=== PATIENT | female | born 1940 | race Caucasian/White ===

== ENCOUNTER 2017-03-30 12:36 | Outpatient (CLI) | payer BC, MEDICARE ==
[2017-03-30 14:21] LABS: #Basophils 0.1 thou/uL (0.0-0.2); #Eosinphils 0.3 thou/uL (0.0-0.7); #Lymphocytes 2.4 thou/uL (1.20-3.40); #Monocytes 1.1 thou/uL (0.11-0.59); #Neutrophils 5.7 thou/uL (1.40-6.50); %Basophils 0.5 % (0.0-1.0); %Lymphocytes 24.9 % (21.0-51.0); %Monocytes 11.1 % (0.0-10.0); Hematocrit 43.2 % (36.0-47.0); Mean Platelet Volume 8.9 fL (7.4-10.4); Red Blood Cell (RBC) Count 4.28 mill/uL (4.20-5.40); White Blood Cell (WBC) Count 9.5 thou/uL (4.8-10.8)
[2017-03-30 14:39] LABS: Anion Gap 13 mmol/L (10-20); BUN (Urea Nitrogen) 25 mg/dL (9.8-20.1); Calc. Creatinine Clearance 0 mL/min (70-130); Calcium 10.9 mg/dL (7.8-10.44); Carbon Dioxide 25 mmol/L (23-31); Chloride 104 mmol/L (98-107); Estimated GFR-MDRD 48
[2017-03-30 14:41] LABS: Bilirubin Negative (Negative); Blood, Urine Negative (Negative); Glucose, Urine (Dipstick) 250 mg/dL (Negative); Ketone, Urine Negative (Negative); Nitrite Positive (Negative); Protein, Urine (Dipstick) Negative (Neg-Trace); Urobilinogen 0.2 mg/dL (0.2-1.0)
[2017-03-30 14:49] LABS: Bacteria/HPF 4+ HPF (None Seen); Hyaline Casts/LPF 0-3 HYALINE CAST LPF (0-3 Hyaline); Squamous Epithelial 0-3 HPF (0-3); WBC/HPF 21-50 HPF (0-3)
[2017-03-30 15:02] LABS: RBC/HPF 0-3 HPF (0-3)
--- NOTE | 2017-03-30 15:08 | EKG ---
Test Reason : Blood Pressure : / mmHG Vent. Rate : 086 BPM Atrial Rate : 086 BPM P-R Int : 160 ms QRS Dur : 084 ms QT Int : 360 ms P-R-T Axes : 059 033 053 degrees QTc Int : 430 ms Normal sinus rhythm Normal ECG No previous ECGs available Confirmed by JEMIMA SOTO ([id number]) on 03/30/2017 3:07:36 PM Referred By: DAYANNARO Confirmed By:JEMIMA SOTO
== END 2017-03-30 12:37 | disposition home or self-care (01) ==
LOC: LABBT 12:36
PROVIDERS: ATTEND Orthopaedic Surgery
DX: Z01.818 Encounter for other preprocedural examination (principal); M17.12 Unilateral primary osteoarthritis, left knee
CPT/HCPCS: 80048; 81001; 85025; 85610; 86850; 86900; 86901; 87081; 93005; 93010

== ENCOUNTER 2017-03-30 13:15 | Inpatient (IN) | payer BC, MEDICARE ==
[2017-03-30 12:51] VITALS: BMI 33.5
[2017-04-05] MEDS ORDERED: CEFAZOLIN/Water 2 GM/20 ML SYRINGE ONE (05:48)
[2017-04-05] MEDS ORDERED: Tranexamic Acid 1,000 MG/100 ML BAG ONE ×2 (05:48→10:07)
[2017-04-05] MEDS ORDERED: Vancomycin HCl 1.5 GM in Sodium Chloride 0.9% 250 ML 300 ML IVPB SCH ×2 (06:00→18:00)
[2017-04-05] MEDS ORDERED: Lidocaine 1% (PF) 30 ML VIAL ONE (06:21)
[2017-04-05] MEDS ORDERED: Ropivacaine 0.2% HCl/PF 20 ML ONE (06:21)
[2017-04-05] MEDS ORDERED: Midazolam HCl 2 mg/2 ml Vial ONE (06:21)
[2017-04-05] MEDS ORDERED: Fentanyl 100 MCG/2 ML VIAL ONE ×2 (06:21→06:49)
[2017-04-05] MEDS ORDERED: Bupivacaine PF 0.5% 30 ML VIAL ONE (06:28)
[2017-04-05] MEDS ORDERED: Ketorolac Tromethamine 30 MG/ML VIAL IVP PRN (07:09)
[2017-04-05] MEDS ORDERED: Fentanyl 100 MCG/2 ML VIAL IV PRN (07:09)
[2017-04-05] MEDS ORDERED: Ropivacaine HCl/PF 250 ML in Premix Bag 1 BAG NERVE BLCK SCH (07:09)
[2017-04-05] MEDS ORDERED: Zolpidem Tartrate 5 MG TAB PO PRN ×2 (07:09→09:02)
[2017-04-05] MEDS ORDERED: Promethazine HCl 25 MG/ML VIAL IM PRN ×3 (07:09→09:21)
[2017-04-05] MEDS ORDERED: HYDROcodone/Acetaminophen 5/325 mg Tablet PO PRN (07:09)
[2017-04-05] MEDS ORDERED: traMADol HCl 50 MG TAB PO PRN ×3 (07:09→09:02)
[2017-04-05] MEDS ORDERED: Ondansetron HCl/PF 4 MG/2 ML Vial IVP PRN ×3 (07:09→09:21)
[2017-04-05] MEDS ORDERED: Ondansetron HCl/PF 4 MG/2 ML Vial ONE (07:18)
[2017-04-05] MEDS ORDERED: Dexamethasone 20 MG/5 ML VIAL ONE (07:18)
[2017-04-05] MEDS ORDERED: Ketorolac Tromethamine 30 MG/ML VIAL ONE (07:18)
[2017-04-05] MEDS ORDERED: Lidocaine 2% PF 10 ML AMP (For Epidural Use) ONE (07:18)
[2017-04-05] MEDS ORDERED: Propofol 200 MG/20 ML VIAL ONE (07:18)
[2017-04-05] MEDS ORDERED: HYDROcodone/Acetaminophen 10/325 mg Tablet PO PRN ×2 (09:02)
[2017-04-05] MEDS ORDERED: Acetaminophen 325 MG TAB PO PRN (09:02)
[2017-04-05] MEDS ORDERED: diphenhydrAMINE 25 MG CAP PO PRN (09:02)
[2017-04-05] MEDS ORDERED: Tranexamic Acid 1,000 MG in Sodium Chloride 0.9% 100 ML IVPB SCH (09:15)
[2017-04-05] MEDS ORDERED: Promethazine HCl 25 MG/ML VIAL SLOW IVP PRN (09:21)
[2017-04-05] MEDS ORDERED: HYDROmorphone 2 MG/ML VIAL SLOW IVP PRN (09:21)
[2017-04-05] MEDS ORDERED: Morphine Sulfate 2 MG/ML SYRINGE SLOW IVP PRN (09:21)
[2017-04-05 09:47] LABS: Bilirubin Negative (Negative); Blood, Urine Negative (Negative); Glucose, Urine (Dipstick) Negative (Negative); Ketone, Urine Negative (Negative); Nitrite Negative (Negative); Protein, Urine (Dipstick) Negative (Neg-Trace); Urobilinogen 0.2 mg/dL (0.2-1.0)
--- NOTE | 2017-04-05 09:49 | OP ---
DATE OF PROCEDURE: 04/05/2017 PREOPERATIVE DIAGNOSIS: Left knee osteoarthrosis. POSTOPERATIVE DIAGNOSIS: Left knee osteoarthrosis. PROCEDURE PERFORMED: Left total knee replacement using Cherry pinless navigation. SURGEON: Danilo Perez M.D. MOVIE MACHINE OPERATOR: Eric Arnold PA-C. BLOOD LOSS: Minimal. COMPLICATIONS: None. ANESTHESIA: She had a general anesthetic, she also had a preoperative block. IMPLANTS: Left knee, Triathlon total knee system. Femur size 4, cruciate retaining, the tibial bas eplate was size 3 universal tibial baseplate. We used a 3 x 9 mm CSX3 tibial bearing and an asymmet rebecca 29 x 9 X3 patella. DISPOSITION: She did go to the recovery room in stable condition. INDICATIONS: This is a 77-year-old female who has failed all nonoperative treatment for a significa nt pain in her left knee secondary to arthritis. At this time, she opted to have the knee replaced. PROCEDURE IN DETAIL: After all appropriate consent forms were explained and signed, the patient was taken back to the Operating Room and at this time was given general anesthetic. Once the level of an esthesia was appropriate, a well-padded tourniquet was placed on the left leg and the leg was then p repped and draped in standard surgical fashion. The limb was exsanguinated and tourniquet taken up t o 300 mmHg. Midline incision was made with a 10 blade down through the skin and subcutaneous tissue. Bovie electrocautery was used to coagulate any brisk venous bleeding. A new blade was used to make a medial parapatellar arthrotomy. Small subperiosteal release was performed medially and excess fat pad was removed. The knee was flexed up to gain access to the femur. The femur was navigated and dis luis miguel femoral resection was made. Epicondylar access was used to align our sizing jig and this was pin piero in place. We sized our femur to be a size 4. 4:1 cutting block was applied and pinned. Anterior and posterior chamfer cuts were then made. We navigated out our proximal tibia and made our proxima l tibial resection. Spreaders were used to remove any posterior osteophytes off the back of the femu r as well as remaining meniscal tissue. A long alignment luis was then used to achieve correct rotati on of our tibial baseplate and a size 3 was chosen. This was pinned in place. We trialed the polyeth ylene and a 3 x 9 mm CS X3 polyethylene gave us full extension and good stability throughout range o f motion. Two towel clips and a saw were used to cut our patella. Three lug nuts were drilled and an asymmetric 29 x 9 X3 patella was trialed which sat nicely in the trochlear groove. We then drilled our femur and punched our tibia. All components were removed. The knee was thoroughly irrigated and dried. Cement was mixed into the cement gun on the back table. Components were then placed. The knee was held out in full extension until the cement had dried. All excess bone cement was removed. Mul tiple #2 Vicryl stitches as well as a Quill was used to close our extensor mechanism. 0 Quill follow ed by a running Monoderm was then used to close the skin. Surgicel glue was then used on the skin. O nce this had dried, soft tissue dressing was applied to the limb, tourniquet was let down, and the t oes pinked up nicely. The patient was then awakened and taken to the Recovery Room in stable condit ion. All counts were correct at the end of the case. The patient did receive preoperative IV antibio tics. The patient was injected with Exparel for postoperative pain relief.
[2017-04-05] MEDS: Sodium Chloride 0.9% 1,000 ML IV SCH ×2 (13:31→21:26)
[2017-04-05] MEDS: CEFAZOLIN/Water 2 GM/20 ML SYRINGE SLOW IVP SCH (16:06)
[2017-04-05] MEDS: glyBURIDE 5 MG TAB PO SCH (18:07)
[2017-04-05] MEDS ORDERED: HumaLOG 300 UNITS/3 ML VIAL SC PRN (18:10)
[2017-04-05] MEDS ORDERED: Dextrose 50% Abboject 50 ML SYRINGE SLOW IVP PRN (18:10)
[2017-04-05] MEDS ORDERED: Dextrose 5% in Water 1,000 ML IV PRN (18:10)
--- NOTE | 2017-04-05 18:12 | PDOC.PN ---
- Subjective Encounter Start Date: 04/05/17 Encounter Start Time: 14:20 Pt seen for management of medical comorbidities, including diabetes mellitus. Denies chest pain, shortness of breath, fevers or chills. No nausea or vomiting. No fevers or chills. - Objective MAR Reviewed: Yes Vital Signs & Weight: Vital Signs (12 hours) Temp Pulse Resp BP Pulse Ox 04/05/17 10:25 98.1 F 104 H 18 160/93 H 98 Weight Weight 207 lb 14.334 oz Phys Exam - Physical Examination Constitutional: NAD HEENT: moist MMs Neck: supple Respiratory: clear to auscultation bilateral Cardiovascular: RRR Gastrointestinal: soft, non-tender Musculoskeletal: pulses present s/p L knee surgery Neurological: moves all 4 limbs Psychiatric: normal affect, A&O x 3 Dx/Plan (1) DM2 (diabetes mellitus, type 2) Status: Chronic (2) Dyslipidemia Code(s): E78.5 - HYPERLIPIDEMIA, UNSPECIFIED Status: Chronic (3) Gout Code(s): M10.9 - GOUT, UNSPECIFIED Status: Chronic - Plan PT/OT, out of bed/ambulate * . Start accuchecks, insulin sliding scale. Continue fenofibrate. PRN IV hydralazine for blood pressure spikes. s/p L knee surgery. DVT prophylaxis and pain management per orthopedic surgery. Continue allopurinol. Code status: Full Review of Systems - Review of Systems Constitutional: negative: Fever, Chills, Sweats, Weakness, Malaise Respiratory: negative: Cough, Dry, Shortness of Breath, Hemoptysis, SOB with Excertion, Pleuritic Pain, Sputum, Wheezing Cardiovascular: negative: Chest Pain, Palpitations, Orthopnea, Paroxysmal Noc. Dyspnea, Edema, Light Headedness - Medications/Allergies Allergies/Adverse Reactions: Allergies Allergy/AdvReac Type Severity Reaction Status Date / Time adhesive tape Allergy Verified 03/30/17 12:51 Medications: Current Medications Acetaminophen (Tylenol) 650 mg PO Q4H PRN PRN Reason: [place]SE[place]/ T > 101F; Mild Pain (1-3) Hydrocodone Bitart/Acetaminophen ([place] 5/325) 1 tab PO Q4H PRN PRN Reason: Mild Pain (1-3) Hydrocodone Bitart/Acetaminophen ([place] 5/325) 2 tab PO Q4H PRN PRN Reason: For Moderate Pain 4-6 Hydrocodone Bitart/Acetaminophen ([place] 10/325) 1 tab PO Q4H PRN PRN Reason: Moderate Pain (4-6) Hydrocodone Bitart/Acetaminophen ([place] 10/325) 2 tab PO Q4H PRN PRN Reason: Severe Pain (7-10) Allopurinol (Zyloprim) 300 mg PO DAILY [facility] Aspirin (Aspirin) 325 mg PO BID [facility] Atorvastatin Calcium (Lipitor) 20 mg PO HS [facility] Cefazolin Sodium (Ancef) 2 gm SLOW IVP 0000,1600 [facility] Stop: 04/06/17 00:01 Last Admin: 04/05/17 16:06 Dose: 2 gm Coenzyme Q10 (Coenzyme Q10) 100 mg PO DAILY [facility] Dextrose/Water (Dextrose 50%) 25 gm SLOW IVP PRN PRN PRN Reason: Hypoglycemia Diphenhydramine HCl (Benadryl) 25 mg PO Q6H PRN PRN Reason: Itching Fenofibrate (Tricor) 48 mg PO DAILY [facility] Fentanyl (Sublimaze) 50 mcg IV Q1H PRN PRN Reason: BREAKTHROUGH PAIN Ferrous Gluconate (Fergon) 324 mg PO BID [facility] Fluticasone Propionate (Flonase Nasal [place]) 0 gm NASAL DAILY [facility] Glucagon (Glucagon) 1 mg IM PRN PRN PRN Reason: Hypoglycemia Glyburide (Diabeta) 5 mg PO 0730,1630 [facility] Last Admin: 04/05/17 18:07 Dose: 5 mg Ropivacaine 250 ml/ Device 250 mls @ 0 mls/hr NERVE BLCK INF [facility] PRN Reason: As Directed Sodium Chloride (Normal Saline 0.9%) 1,000 mls @ 100 mls/hr IV .Q10H [facility] Last Admin: 04/05/17 13:31 Dose: Not Given Vancomycin HCl 1.5 gm/ Sodium (Chloride) 300 mls @ 200 mls/hr IVPB 1800 [facility] Last Admin: 04/05/17 18:07 Dose: 300 mls Dextrose/Water (D5w) 1,000 mls @ 0 mls/hr IV .Q0M PRN; As Directed PRN Reason: Hypoglycemia Insulin Human Lispro (Humalog) 0 units SC .MILD SLIDING SCALE PRN PRN Reason: Mild Correctional Scale Iron/Minerals/Multivitamins (Theragran M) 1 tab PO DAILY [facility] Ketorolac Tromethamine (Toradol) 15 mg IVP Q6H PRN PRN Reason: Moderate Pain (4-6) Stop: 04/08/17 07:10 Ondansetron HCl (Zofran) 4 mg IVP Q6H PRN PRN Reason: Nausea/Vomiting Promethazine HCl (Phenergan) 12.5 mg IM Q4H PRN PRN Reason: Nausea Senna/Docusate Sodium (Senokot S) 2 tab PO BID [facility] Sodium Chloride (Flush - Normal Saline) 10 ml IVF PRN PRN PRN Reason: Saline Flush Tramadol HCl (Ultram) 50 mg PO Q6H PRN PRN Reason: Mild Pain (1-3) Tramadol HCl (Ultram) 100 mg PO Q6H PRN PRN Reason: Moderate Pain 4-6 Zolpidem Tartrate (Ambien) 5 mg PO HSPRN PRN PRN Reason: Insomnia
[2017-04-05] MEDS: Aspirin 325 MG TAB PO SCH (20:47)
[2017-04-05] MEDS ORDERED: Zolpidem Tartrate 5 MG TAB PO SCH (21:00)
[2017-04-06] MEDS: CEFAZOLIN/Water 2 GM/20 ML SYRINGE SLOW IVP SCH (00:16)
[2017-04-06] MEDS: Sodium Chloride 0.9% 1,000 ML IV SCH ×3 (00:37→21:48)
[2017-04-06 06:47] LABS: Hematocrit 35.3 % (36.0-47.0); Mean Platelet Volume 8.7 fL (7.4-10.4); Red Blood Cell (RBC) Count 3.51 mill/uL (4.20-5.40)
[2017-04-06] MEDS: Ubidecarenone 50 MG CAP PO SCH (08:15)
[2017-04-06] MEDS: glyBURIDE 5 MG TAB PO SCH ×2 (08:15→16:37)
[2017-04-06] MEDS: Ferrous Gluconate 324 MG TAB PO SCH ×2 (08:16→19:59)
[2017-04-06] MEDS: Multivitamin W/ Minerals 1 TAB PO SCH (08:16)
[2017-04-06] MEDS: Senokot S 8.6-50 MG TAB PO SCH ×2 (08:16→19:59)
[2017-04-06] MEDS: Allopurinol 300 MG TAB PO SCH (08:16)
[2017-04-06] MEDS: Aspirin 325 MG TAB PO SCH ×2 (08:16→19:59)
[2017-04-06] MEDS: HYDROcodone/Acetaminophen 5/325 mg Tablet PO PRN ×2 (08:17→12:47)
[2017-04-06] MEDS: Fluticasone Propionate Nasal Spray 16 gm Bottle NASAL SCH (08:18)
--- NOTE | 2017-04-06 14:39 | PDOC.PN ---
- Subjective Encounter Start Date: 04/06/17 Encounter Start Time: 09:20 Pt seen for followup re; diabetes mellitus. Says she feels better. Denies chest pain, nausea, vomiting, diarrhea or abdo pain. - Objective MAR Reviewed: Yes Vital Signs & Weight: Vital Signs (12 hours) Temp Pulse Resp BP Pulse Ox 04/06/17 12:20 98.5 F 102 H 20 146/76 H 97 04/06/17 08:10 98.8 F 104 H 22 H 138/60 95 Weight Admit Weight 207 lb 14.32 oz Weight 207 lb 14.32 oz I&O: 04/05/17 04/06/17 04/07/17 06:59 06:59 06:59 Intake Total 2844 Output Total 2400 Balance 444 Result Diagrams: 04/06/17 06:18 Additional Labs: Accuchecks 04/06/17 04/06/17 04/05/17 11:27 06:07 20:04 POC Glucose 160 H 125 H 271 H Phys Exam - Physical Examination Constitutional: NAD HEENT: moist MMs Neck: supple Respiratory: clear to auscultation bilateral Cardiovascular: RRR Gastrointestinal: positive bowel sounds s/p L knee surgery Neurological: moves all 4 limbs Psychiatric: normal affect Skin: no rash, cap refill <2 seconds Dx/Plan (1) DM2 (diabetes mellitus, type 2) Status: Chronic (2) Dyslipidemia Code(s): E78.5 - HYPERLIPIDEMIA, UNSPECIFIED Status: Chronic (3) Gout Code(s): M10.9 - GOUT, UNSPECIFIED Status: Chronic - Plan * . Continue accuchecks, insulin sliding scale. Continus statin. Continue allopurinol. Review of Systems - Review of Systems Constitutional: negative: Fever, Chills, Sweats, Weakness, Malaise Respiratory: negative: Cough, Dry, Shortness of Breath, SOB with Excertion, Pleuritic Pain, Sputum, Wheezing Cardiovascular: negative: Chest Pain, Palpitations, Orthopnea, Edema - Medications/Allergies Allergies/Adverse Reactions: Allergies Allergy/AdvReac Type Severity Reaction Status Date / Time adhesive tape Allergy Verified 03/30/17 12:51 Medications: Current Medications Acetaminophen (Tylenol) 650 mg PO Q4H PRN PRN Reason: [place]/ T > 101F; Mild Pain (1-3) Hydrocodone Bitart/Acetaminophen ([place] 5/325) 1 tab PO Q4H PRN PRN Reason: Mild Pain (1-3) Hydrocodone Bitart/Acetaminophen ([place] 5/325) 2 tab PO Q4H PRN PRN Reason: For Moderate Pain 4-6 Last Admin: 04/06/17 12:47 Dose: 2 tab Hydrocodone Bitart/Acetaminophen ([place] 10/325) 1 tab PO Q4H PRN PRN Reason: Moderate Pain (4-6) Hydrocodone Bitart/Acetaminophen ([place] 10/325) 2 tab PO Q4H PRN PRN Reason: Severe Pain (7-10) Allopurinol (Zyloprim) 300 mg PO DAILY [facility] Last Admin: 04/06/17 08:16 Dose: 300 mg Aspirin (Aspirin) 325 mg PO BID [facility] Last Admin: 04/06/17 08:16 Dose: 325 mg Atorvastatin Calcium (Lipitor) 20 mg PO HS [facility] Coenzyme Q10 (Coenzyme Q10) 100 mg PO DAILY [facility] Last Admin: 04/06/17 08:15 Dose: 100 mg Dextrose/Water (Dextrose 50%) 25 gm SLOW IVP PRN PRN PRN Reason: Hypoglycemia Diphenhydramine HCl (Benadryl) 25 mg PO Q6H PRN PRN Reason: Itching Fenofibrate (Tricor) 48 mg PO DAILY [facility] Last Admin: 04/06/17 08:19 Dose: 48 mg Fentanyl (Sublimaze) 50 mcg IV Q1H PRN PRN Reason: BREAKTHROUGH PAIN Ferrous Gluconate (Fergon) 324 mg PO BID [facility] Last Admin: 04/06/17 08:16 Dose: 324 mg Fluticasone Propionate (Flonase Nasal [place]) 0 gm NASAL DAILY [facility] Last Admin: 04/06/17 08:18 Dose: 1 spray Glucagon (Glucagon) 1 mg IM PRN PRN PRN Reason: Hypoglycemia Glyburide (Diabeta) 5 mg PO 0730,1630 [facility] Last Admin: 04/06/17 08:15 Dose: 5 mg Ropivacaine 250 ml/ Device 250 mls @ 0 mls/hr NERVE BLCK INF [facility] PRN Reason: As Directed Last Admin: 04/06/17 11:19 Dose: 250 mls Sodium Chloride (Normal Saline 0.9%) 1,000 mls @ 100 mls/hr IV .Q10H [facility] Last Admin: 04/06/17 00:37 Dose: Not Given Dextrose/Water (D5w) 1,000 mls @ 0 mls/hr IV .Q0M PRN; As Directed PRN Reason: Hypoglycemia Insulin Human Lispro (Humalog) 0 units SC .MILD SLIDING SCALE PRN PRN Reason: Mild Correctional Scale Iron/Minerals/Multivitamins (Theragran M) 1 tab PO DAILY [facility] Last Admin: 04/06/17 08:16 Dose: 1 tab Ketorolac Tromethamine (Toradol) 15 mg IVP Q6H PRN PRN Reason: Moderate Pain (4-6) Stop: 04/08/17 07:10 Ondansetron HCl (Zofran) 4 mg IVP Q6H PRN PRN Reason: Nausea/Vomiting Promethazine HCl (Phenergan) 12.5 mg IM Q4H PRN PRN Reason: Nausea Senna/Docusate Sodium (Senokot S) 2 tab PO BID [facility] Last Admin: 04/06/17 08:16 Dose: 2 tab Sodium Chloride (Flush - Normal Saline) 10 ml IVF PRN PRN PRN Reason: Saline Flush Last Admin: 04/06/17 08:18 Dose: 10 ml Tramadol HCl (Ultram) 50 mg PO Q6H PRN PRN Reason: Mild Pain (1-3) Tramadol HCl (Ultram) 100 mg PO Q6H PRN PRN Reason: Moderate Pain 4-6 Last Admin: 04/05/17 20:52 Dose: 100 mg Zolpidem Tartrate (Ambien) 5 mg PO HSPRN PRN PRN Reason: Insomnia Last Admin: 04/05/17 20:53 Dose: 5 mg
[2017-04-06] MEDS ORDERED: Milk Of Magnesia 30 ML UDCUP PO PRN (19:51)
[2017-04-06] MEDS ORDERED: Atorvastatin Calcium 20 MG TAB PO SCH (21:00)
[2017-04-07 06:41] LABS: Hematocrit 38.9 % (36.0-47.0); Mean Platelet Volume 8.8 fL (7.4-10.4); Red Blood Cell (RBC) Count 3.94 mill/uL (4.20-5.40); White Blood Cell (WBC) Count 15.3 thou/uL (4.8-10.8)
[2017-04-07] MEDS: Allopurinol 300 MG TAB PO SCH (08:49)
[2017-04-07] MEDS: Ferrous Gluconate 324 MG TAB PO SCH (08:49)
[2017-04-07] MEDS: glyBURIDE 5 MG TAB PO SCH (08:50)
[2017-04-07] MEDS: Ubidecarenone 50 MG CAP PO SCH (08:50)
[2017-04-07] MEDS: Senokot S 8.6-50 MG TAB PO SCH (08:50)
[2017-04-07] MEDS: Multivitamin W/ Minerals 1 TAB PO SCH (08:50)
[2017-04-07] MEDS: Fluticasone Propionate Nasal Spray 16 gm Bottle NASAL SCH (08:51)
[2017-04-07] MEDS: Aspirin 325 MG TAB PO SCH (08:51)
[2017-04-07 09:13] VITALS: BP 141/65; TEMP 98.4
[2017-04-07] MEDS: HYDROcodone/Acetaminophen 5/325 mg Tablet PO PRN (09:53)
--- NOTE | 2017-04-07 11:54 | DIS ---
DATE OF ADMISSION: 04/05/2017 DATE OF DISCHARGE: 04/07/2017 PRIMARY CARE PHYSICIAN: Dr. Inder Ivan. DISCHARGE DISPOSITION: Home. PRIMARY DISCHARGE DIAGNOSIS: Status post left total knee replacement. SECONDARY DISCHARGE DIAGNOSES: Diabetes, type 2; dyslipidemia; gout; obesity with BMI 33; allergic rhinitis. PRIMARY PROCEDURES AND OPERATIONS: Left total knee replacement. RADIOLOGICAL INVESTIGATION: None. SIGNIFICANT LABORATORY: Hemoglobin 12.5, WBC 15.3, platelets 244. Urinalysis normal. Urine cultur e negative. DISCHARGE MEDICATIONS: Allopurinol 300 mg p.o. daily, Lipitor 20 mg p.o. daily, TriCor 43 mg p.o. a t bedtime, Flonase nasal spray daily, naproxen 220 mg p.o. b.i.d. p.r.n., coenzyme Q10 100 mg p.o. d aily, Ambien 10 mg p.o. at bedtime, glyburide 5 mg p.o. b.i.d., aspirin 325 mg p.o. b.i.d. for deep vein thrombosis prophylaxis. Patient is advised to take Pepcid, Prilosec, or Nexium OTC for gastroi ntestinal prophylaxis as needed. PAIN MEDICATIONS: We will defer to primary team. CONTRAINDICATIONS: None. CODE STATUS: FULL CODE. INPATIENT CONSULTANTS: Dr. Perez was primary while in hospital. Sound Team was consulted for medica l co-management. TEST RESULTS PENDING ON DISCHARGE: None. ALLERGIES: ADHESIVE TAPE. DISCHARGE PLAN: Post hospital, the patient will follow up with Dr. Perez on 04/13/2017 at 2:15 p.m. The patient will make appointment with Dr. Inder Ivan. HOSPITAL COURSE: A 77-year-old female who was electively admitted by Dr. Perez for left total knee r eplacement, which was done on 04/05/2017. Postoperatively, the patient was transferred to the [facility]. At that point, we were consulted for medical co-management. The patient's medical pro blems remained stable. We resumed the patient's home medication while in hospital. She was given a spirin for DVT prophylaxis. Her pain was controlled with a nerve block. The patient did very well with the [facility] protocol treatment. On discharge, we continued all her home medication. Patient is given aspirin for DVT prophylaxis and advised about GI prophylaxis to take on an as neede d basis. The patient is seen and examined at bedside today. All review of systems reviewed and negative. VITAL SIGNS: Currently, temperature 98.4, pulse 98, respiratory rate 18, saturation 97%, blood pres sure 141/65. GENERAL: The patient is currently alert, awake, in no acute distress. HEAD: Normocephalic, atraumatic. LUNGS: Clear to auscultation without any rhonchi or rales. CARDIAC: S1, S2 regular without any murmur. ABDOMEN: Soft and benign. EXTREMITIES: No edema. NEUROLOGIC: Nonfocal examination. Overall, patient is medically stable for discharge today.
== END 2017-04-07 15:22 | disposition home or self-care (01) | DRG 470 ==
LOC: SURG A 04-05 05:22 → SJJU 04-05 10:20
PROVIDERS: ADMIT Orthopaedic Surgery; ATTEND Orthopaedic Surgery
PROC: 0SRD0J9 Replacement of Left Knee Joint with Synthetic Substitute, Cemented, Open Approach (ICD-10-PCS; principal; 2017-04-05)
PROC: 3E0T3BZ Introduction of Anesthetic Agent into Peripheral Nerves and Plexi, Percutaneous Approach (ICD-10-PCS; 2017-04-05)
DX: M17.12 Unilateral primary osteoarthritis, left knee (principal); E11.9 Type 2 diabetes mellitus without complications; E78.5 Hyperlipidemia, unspecified; M10.9 Gout, unspecified; E66.9 Obesity, unspecified; Z68.33 Body mass index [BMI] 33.0-33.9, adult; J30.9 Allergic rhinitis, unspecified; Z96.651 Presence of right artificial knee joint
CPT/HCPCS: 36415; 36416; 81003; 85027; 87086; C1713; C1776; G8978-GP-CL; G8979-GP-CJ; J1100; J1170; J1885; J2001; J2250; J2405; J2704; J2795; J3010; J3370; J7050; S0020

== ENCOUNTER 2020-09-06 04:49 | Inpatient (IN) | payer BC, MEDICARE ==
[2020-09-06 06:26] LABS: #Eosinphils 0.2 thou/uL (0.0-0.7); #Lymphocytes 0.8 thou/uL (1.20-3.40); #Monocytes 0.9 thou/uL (0.11-0.59); %Basophils 0.3 % (0.0-1.0); %Eosinophils 1.7 % (0.0-10.0); %Lymphocytes 9.3 % (21.0-51.0); %Monocytes 9.8 % (0.0-10.0); %Neutrophils 78.8 % (42.0-75.0); Hemoglobin 11.6 g/dL (12.0-16.0); Mean Corpuscular HGB CONC 32.6 g/dL (32.0-36.0); Mean Corpuscular Hemoglobin 31.3 pg (27.0-31.0); Mean Corpuscular Volume 96.1 fL (78.0-98.0); Mean Platelet Volume 8.3 fL (7.4-10.4); Platelet Count 285 thou/uL (130-400); RBC Distribution Width 13.2 % (11.5-14.5); Red Blood Cell (RBC) Count 3.72 mill/uL (4.20-5.40); White Blood Cell (WBC) Count 8.9 thou/uL (4.8-10.8)
[2020-09-06] MEDS ORDERED: Ondansetron PF 4 MG/2 ML Vial ONE (06:30)
[2020-09-06] MEDS ORDERED: Morphine 2 MG/ML VIAL ONE (06:30)
[2020-09-06 06:45] LABS: ALT (SGPT) 18 U/L (8-55); AST (SGOT) 23 U/L (5-34); Albumin 3.6 g/dL (3.4-4.8); Alkaline Phosphatase 58 U/L (40-110); Anion Gap 16 mmol/L (10-20); BUN (Urea Nitrogen) 34 mg/dL (9.8-20.1); Bilirubin, Total 0.4 mg/dL (0.2-1.2); Calc. Creatinine Clearance 0 mL/min (70-130); Calcium 9.5 mg/dL (7.8-10.44); Carbon Dioxide 22 mmol/L (23-31); Chloride 106 mmol/L (98-107); Globulin 3.5 g/dL (2.4-3.5); Glucose 150 mg/dL (83-110); Potassium 4.2 mmol/L (3.5-5.1); Protein, Total 7.1 g/dL (5.8-8.1); Sodium 140 mmol/L (136-145)
[2020-09-06] MEDS ORDERED: hydrALAZINE 20 MG/ML VIAL SLOW IVP PRN (07:32)
[2020-09-06] MEDS ORDERED: Dextrose 50% Abboject 50 ML SYRINGE SLOW IVP PRN (07:32)
[2020-09-06] MEDS ORDERED: Dextrose 5% in Water 1,000 ML IV PRN (07:32)
[2020-09-06] MEDS ORDERED: Insulin Regular 300 UNITS/3 ML VIAL SC PRN (07:32)
[2020-09-06] MEDS ORDERED: Ondansetron PF 4 MG/2 ML Vial IVP PRN (07:32)
[2020-09-06] MEDS ORDERED: traMADol HCl 50 MG TAB PO PRN ×2 (07:43)
[2020-09-06] MEDS ORDERED: Cyclobenzaprine 10 MG TAB PO PRN (07:43)
[2020-09-06] MEDS ORDERED: Sodium Chloride 0.9% 1,000 ML IV SCH (07:45)
[2020-09-06] MEDS: Senokot S 8.6-50 MG TAB PO SCH ×2 (08:21→20:20)
[2020-09-06] MEDS: Polyethylene Glycol 3350 17 GM Packet PO SCH (08:21)
[2020-09-06] MEDS: Famotidine 20 MG TAB PO SCH ×2 (08:21→20:20)
[2020-09-06 09:14] LABS: SARS-CoV-2 NAA Rapid Test Not Detected (NotDetected)
[2020-09-06] MEDS ORDERED: CEFAZOLIN 2 GM in Premix Bag 1 BAG IVPB SCH (09:15)
[2020-09-06 09:32] LABS: Bilirubin Negative (Negative); Blood, Urine Trace (Negative); Clarity Turbid (Clear); Glucose, Urine (Dipstick) Normal (Negative); Ketone, Urine Negative (Negative); Leukocyte 500 Leu/uL (Negative); Nitrite Negative (Negative); Protein, Urine (Dipstick) Negative (Neg-Trace); Specific Gravity, Urine 1.009 (1.002-1.036); Squamous Epithelial 0-3 HPF (0-3); Urobilinogen Normal mg/dL (Less than 2)
[2020-09-06 09:39] LABS: RBC/HPF 0-3 HPF (0-3)
[2020-09-06 09:40] LABS: Bacteria/HPF 1+ HPF (None Seen)
[2020-09-06 09:41] LABS: Urine Culture Reflex Yes Yes
[2020-09-06] MEDS ORDERED: Morphine 4 MG/ML VIAL SLOW IVP PRN (09:53)
[2020-09-06] MEDS ORDERED: Morphine 2 MG/ML VIAL SLOW IVP SCH (10:00)
[2020-09-06] MEDS ORDERED: Magnesium Sulfate 3 GM in Sodium Chloride 0.9% 100 ML IV SCH (10:00)
[2020-09-06] MEDS: Sodium Chloride 0.9% 1,000 ML IV SCH ×2 (10:02→18:55)
[2020-09-06 10:30] VITALS: BMI 27.1
[2020-09-06] MEDS: Acetaminophen 500 MG TAB PO SCH ×3 (11:44→23:16)
[2020-09-06] MEDS ORDERED: Midazolam HCl 2 mg/2 ml Vial ONE (12:09)
[2020-09-06] MEDS ORDERED: Fentanyl 100 MCG/2 ML VIAL ONE ×2 (12:09→12:42)
[2020-09-06] MEDS ORDERED: Rocuronium Bromide 10 MG/ML (10ML VIAL) ONE (13:02)
[2020-09-06] MEDS ORDERED: Succinylcholine 200 MG/10 ml SYRINGE FS ONE (13:02)
[2020-09-06] MEDS ORDERED: PHENYLEPHRINE-NS 100 MCG/ML 10 ML SYRINGE ONE (13:02)
[2020-09-06] MEDS ORDERED: Lidocaine 1% PF 5 ML VIAL ONE (13:02)
[2020-09-06] MEDS ORDERED: Ropivacaine 0.5% HCl/PF (150 MG/30 ML VIAL) ONE (13:02)
[2020-09-06] MEDS ORDERED: ePHEDrine 50 MG/ML VIAL ONE (13:02)
[2020-09-06] MEDS ORDERED: PROPOFOL 200 MG/20 ML VIAL ONE (13:02)
[2020-09-06] MEDS: Ibuprofen 800 MG TAB PO SCH ×2 (14:17→23:16)
[2020-09-06] MEDS: Atorvastatin Calcium 20 MG TAB PO SCH (20:20)
[2020-09-06] MEDS: Zolpidem Tartrate 5 MG TAB PO SCH (20:20)
[2020-09-06] MEDS ORDERED: Aspirin 81 mg Enteric Coated Tablet PO SCH (21:00)
[2020-09-07] MEDS: Sodium Chloride 0.9% 1,000 ML IV SCH (05:39)
[2020-09-07] MEDS: Acetaminophen 500 MG TAB PO SCH ×3 (05:40→16:18)
[2020-09-07] MEDS: Ibuprofen 800 MG TAB PO SCH ×3 (05:40→21:14)
[2020-09-07 05:57] LABS: #Basophils 0.1 thou/uL (0.0-0.2); #Eosinphils 0.3 thou/uL (0.0-0.7); #Lymphocytes 1.2 thou/uL (1.20-3.40); #Neutrophils 6.6 thou/uL (1.40-6.50); %Basophils 0.6 % (0.0-1.0); %Eosinophils 3.6 % (0.0-10.0); %Lymphocytes 13.4 % (21.0-51.0); %Monocytes 10.9 % (0.0-10.0); %Neutrophils 71.6 % (42.0-75.0); Hemoglobin 9.4 g/dL (12.0-16.0); Mean Corpuscular HGB CONC 34.5 g/dL (32.0-36.0); Mean Corpuscular Hemoglobin 33.3 pg (27.0-31.0); Mean Corpuscular Volume 96.7 fL (78.0-98.0); Mean Platelet Volume 8.6 fL (7.4-10.4); Platelet Count 225 thou/uL (130-400); RBC Distribution Width 13.1 % (11.5-14.5); Red Blood Cell (RBC) Count 2.81 mill/uL (4.20-5.40); White Blood Cell (WBC) Count 9.3 thou/uL (4.8-10.8)
[2020-09-07 06:12] LABS: Anion Gap 12 mmol/L (10-20); BUN (Urea Nitrogen) 20 mg/dL (9.8-20.1); Calc. Creatinine Clearance 44 mL/min (70-130); Calcium 8.1 mg/dL (7.8-10.44); Carbon Dioxide 21 mmol/L (23-31); Chloride 108 mmol/L (98-107); Glucose 116 mg/dL (83-110); Potassium 4.7 mmol/L (3.5-5.1); Sodium 136 mmol/L (136-145)
[2020-09-07] MEDS: glyBURIDE 5 MG TAB PO SCH (06:23)
[2020-09-07] MEDS ORDERED: Ascorbic Acid 500 mg Chewable Tablet PO SCH (08:00)
[2020-09-07] MEDS: Ferrous Sulfate 325 MG TAB PO SCH ×2 (09:30→16:18)
[2020-09-07] MEDS: Famotidine 20 MG TAB PO SCH (09:31)
[2020-09-07] MEDS: Cyanocobalamin (Vitamin B-12) 1,000 MCG TAB PO SCH (09:31)
[2020-09-07] MEDS: Allopurinol 300 MG TAB PO SCH (09:31)
[2020-09-07] MEDS: Polyethylene Glycol 3350 17 GM Packet PO SCH (09:31)
[2020-09-07] MEDS: Aspirin 81 mg Enteric Coated Tablet PO SCH ×2 (09:31→21:16)
[2020-09-07] MEDS: Fenofibrate 48 MG TAB PO SCH (09:31)
[2020-09-07] MEDS: Senokot S 8.6-50 MG TAB PO SCH ×2 (09:31→21:21)
[2020-09-07] MEDS: Losartan 25 MG TAB PO SCH (09:31)
[2020-09-07] MEDS: Senokot 8.6 MG TAB PO SCH ×2 (10:45→21:15)
[2020-09-07] MEDS: Insulin Regular 300 UNITS/3 ML VIAL SC PRN (16:07)
[2020-09-07] MEDS: Ciprofloxacin 500 MG TAB PO SCH ×2 (16:20→21:15)
[2020-09-07] MEDS: Atorvastatin Calcium 20 MG TAB PO SCH (21:15)
[2020-09-07] MEDS: Zolpidem Tartrate 5 MG TAB PO SCH (21:16)
[2020-09-08] MEDS: Acetaminophen 500 MG TAB PO SCH ×5 (00:30→23:31)
[2020-09-08] MEDS: Ibuprofen 800 MG TAB PO SCH ×3 (05:38→21:07)
[2020-09-08] MEDS: Ciprofloxacin 500 MG TAB PO SCH ×2 (05:39→21:06)
[2020-09-08 06:29] LABS: #Eosinphils 0.5 thou/uL (0.0-0.7); #Lymphocytes 1.1 thou/uL (1.20-3.40); #Monocytes 1.3 thou/uL (0.11-0.59); #Neutrophils 9.2 thou/uL (1.40-6.50); %Basophils 0.2 % (0.0-1.0); %Lymphocytes 9.2 % (21.0-51.0); %Monocytes 11.1 % (0.0-10.0); %Neutrophils 75.6 % (42.0-75.0); Mean Corpuscular HGB CONC 32.6 g/dL (32.0-36.0); Mean Corpuscular Hemoglobin 32.1 pg (27.0-31.0); Mean Corpuscular Volume 98.5 fL (78.0-98.0); Mean Platelet Volume 8.6 fL (7.4-10.4); Platelet Count 230 thou/uL (130-400); RBC Distribution Width 13.3 % (11.5-14.5); White Blood Cell (WBC) Count 12.1 thou/uL (4.8-10.8)
[2020-09-08] MEDS: glyBURIDE 5 MG TAB PO SCH (06:55)
[2020-09-08 07:10] LABS: Anion Gap 13 mmol/L (10-20); BUN (Urea Nitrogen) 22 mg/dL (9.8-20.1); Calc. Creatinine Clearance 42 mL/min (70-130); Calcium 9.2 mg/dL (7.8-10.44); Carbon Dioxide 20 mmol/L (23-31); Chloride 110 mmol/L (98-107); Glucose 111 mg/dL (83-110); Magnesium 1.7 mg/dL (1.6-2.6); Phosphorus 2.7 mg/dL (2.3-4.7); Potassium 4.7 mmol/L (3.5-5.1); Sodium 138 mmol/L (136-145)
[2020-09-08] MEDS ORDERED: Dulaglutide [Trulicity] 1.5 MG/0.5 ML Pen.Injctr SC SCH (09:00)
[2020-09-08] MEDS ORDERED: Saccharomyces boulardii 250 MG CAP PO SCH (09:00)
[2020-09-08] MEDS: Ascorbic Acid 500 mg Chewable Tablet PO SCH (09:07)
[2020-09-08] MEDS: Allopurinol 300 MG TAB PO SCH (09:07)
[2020-09-08] MEDS: Ferrous Sulfate 325 MG TAB PO SCH ×2 (09:07→16:42)
[2020-09-08] MEDS: Aspirin 81 mg Enteric Coated Tablet PO SCH ×2 (09:08→21:06)
[2020-09-08] MEDS: Senokot S 8.6-50 MG TAB PO SCH ×2 (09:08→21:05)
[2020-09-08] MEDS: Senokot 8.6 MG TAB PO SCH ×2 (09:09→21:01)
[2020-09-08] MEDS: Losartan 25 MG TAB PO SCH (09:11)
[2020-09-08] MEDS: Fenofibrate 48 MG TAB PO SCH (09:11)
[2020-09-08] MEDS: Cyanocobalamin (Vitamin B-12) 1,000 MCG TAB PO SCH (09:12)
[2020-09-08] MEDS: Polyethylene Glycol 3350 17 GM Packet PO SCH (09:12)
[2020-09-08] MEDS: Insulin Regular 300 UNITS/3 ML VIAL SC PRN (12:38)
[2020-09-08] MEDS: Lactated Ringer's 500 ML IV SCH (16:26)
[2020-09-08] MEDS: Atorvastatin Calcium 20 MG TAB PO SCH (21:06)
[2020-09-08] MEDS: Zolpidem Tartrate 5 MG TAB PO SCH (21:06)
[2020-09-09] MEDS: Lactated Ringer's 500 ML IV SCH ×2 (02:06→09:49)
[2020-09-09] MEDS: Ciprofloxacin 500 MG TAB PO SCH (06:36)
[2020-09-09] MEDS: Ibuprofen 800 MG TAB PO SCH ×2 (06:36→14:56)
[2020-09-09] MEDS: Acetaminophen 500 MG TAB PO SCH ×2 (06:36→11:48)
[2020-09-09] MEDS: glyBURIDE 5 MG TAB PO SCH (06:36)
[2020-09-09] MEDS: Aspirin 81 mg Enteric Coated Tablet PO SCH (08:41)
[2020-09-09] MEDS: Senokot 8.6 MG TAB PO SCH (08:41)
[2020-09-09] MEDS: Fenofibrate 48 MG TAB PO SCH (08:42)
[2020-09-09] MEDS: Allopurinol 300 MG TAB PO SCH (08:42)
[2020-09-09] MEDS: Ascorbic Acid 500 mg Chewable Tablet PO SCH (08:42)
[2020-09-09] MEDS: Ferrous Sulfate 325 MG TAB PO SCH (08:42)
[2020-09-09] MEDS: Losartan 25 MG TAB PO SCH (08:43)
[2020-09-09] MEDS: Cyanocobalamin (Vitamin B-12) 1,000 MCG TAB PO SCH (08:43)
[2020-09-09] MEDS: Senokot S 8.6-50 MG TAB PO SCH (08:44)
[2020-09-09] MEDS: Polyethylene Glycol 3350 17 GM Packet PO SCH (08:44)
[2020-09-09] MEDS ORDERED: Saccharomyces boulardii 250 MG CAP PO SCH (09:00)
[2020-09-09] MEDS: Insulin Regular 300 UNITS/3 ML VIAL SC PRN (11:47)
[2020-09-09 16:42] VITALS: BP 119/73; TEMP 97.9
== END 2020-09-09 15:55 | disposition home or self-care (01) | DRG 522 ==
LOC: ERS 04:49 → SJJU 06:49
PROVIDERS: ADMIT Surgery; ATTEND Surgery
PROC: 0SRS019 Replacement of Left Hip Joint, Femoral Surface with Metal Synthetic Substitute, Cemented, Open Approach (ICD-10-PCS; principal; 2020-09-06)
DX: S72.002A Fracture of unspecified part of neck of left femur, initial encounter for closed fracture (principal); N17.9 Acute kidney failure, unspecified; N28.86 Ureteritis cystica; E11.9 Type 2 diabetes mellitus without complications; I10 Essential (primary) hypertension; M10.9 Gout, unspecified; Z79.82 Long term (current) use of aspirin; Z79.84 Long term (current) use of oral hypoglycemic drugs; Z91.048 Other nonmedicinal substance allergy status; Z96.653 Presence of artificial knee joint, bilateral; E78.5 Hyperlipidemia, unspecified; W18.30XA Fall on same level, unspecified, initial encounter; B96.89 Other specified bacterial agents as the cause of diseases classified elsewhere
CPT/HCPCS: 36415; 36416; 70450; 71045; 72170; 80048; 80053; 81001; 83735; 84100; 84484; 85025; 87077; 87086; 87186; 93005; 96374; 96375; C1776; J0690; J1815; J2250; J2270; J2405; J2704; J2795; J3010; J3475; J3490; U0002